=== PATIENT | female | born 1980 | race Caucasian/White ===

== ENCOUNTER 2019-08-27 11:31 | Outpatient (CLI) | payer MEDICAID | END 2019-08-27 23:59 | disposition home or self-care (01) | LOC: RAD 11:31 | DX: R41.3 Other amnesia (principal) | CPT/HCPCS: 95816 ==

== ENCOUNTER 2020-10-08 00:05 | Emergency (ER) | payer MEDICAID, OTHER ==
[~2020-10-08] VITALS: Ht 149.9 cm; Wt 47.2 kg
[2020-10-08 00:06] VITALS: BP 127/77
--- NOTE | 2020-10-08 01:35 | NUR ---
Assesed by MD and dishcarged prior to RN exam. Ambulatory at discharge
--- NOTE | 2020-10-08 01:38 | NUR ---
Patient became aggressive with Dr. Bravo and was escorted by Nurse, tech and security out of the ED.
== END 2020-10-08 01:41 | disposition home or self-care (01) ==
LOC: ER 00:05
DX: M79.631 Pain in right forearm (principal); R10.2 Pelvic and perineal pain; Z98.890 Other specified postprocedural states
CPT/HCPCS: 99281

== ENCOUNTER 2020-11-28 18:39 | Emergency (ER) | payer MEDICAID ==
[~2020-11-28] VITALS: Ht 149.9 cm; Wt 47.7 kg
[2020-11-28 18:42] VITALS: BP 127/82
[2020-11-28] MEDS ORDERED: DOXY100C2 PO (19:03)
== END 2020-11-28 19:08 | disposition home or self-care (01) ==
LOC: ER 18:39
DX: L03.011 Cellulitis of right finger (principal); M79.644 Pain in right finger(s); Z98.890 Other specified postprocedural states; Z79.2 Long term (current) use of antibiotics
CPT/HCPCS: 99283

== ENCOUNTER 2020-11-28 22:17 | Emergency (ER) | payer MEDICAID ==
[~2020-11-28] VITALS: Ht 157.5 cm; Wt 52.3 kg
[~2020-11-28 22:17] MED LIST: DOXY100C2 PO
[2020-11-28 22:33] VITALS: BP 120/80
[2020-11-28] MEDS ORDERED: DOXYCYCLINE 100MG CAPSULE PO STA (22:44)
[2020-11-28] MEDS ORDERED: HYDROcodone/acetaminophen 5mg/325mg tablet PO ONE (22:45)
== END 2020-11-28 23:37 | disposition home or self-care (01) ==
LOC: ER 22:18
DX: L03.011 Cellulitis of right finger (principal); M79.645 Pain in left finger(s); Z98.890 Other specified postprocedural states; Z79.2 Long term (current) use of antibiotics
CPT/HCPCS: 99283

== ENCOUNTER 2021-05-17 14:09 | Emergency (ER) | payer MEDICAID, OTHER ==
[~2021-05-17] VITALS: Ht 162.6 cm; Wt 52.3 kg
[~2021-05-17 14:09] MED LIST changes: -DOXY100C2 PO; +LIDOcaine 1% W/epiNEPHrine 1:100,000 20ml vial ONE
[2021-05-17] MEDS ORDERED: bacitracin 15gm ointment TP ONE (14:50)
[2021-05-17 15:58] VITALS: BP 125/94
== END 2021-05-17 17:00 | disposition home or self-care (01) ==
LOC: ER 14:10
DX: S01.81XA Laceration without foreign body of other part of head, initial encounter (principal); Z98.890 Other specified postprocedural states; X58.XXXA Exposure to other specified factors, initial encounter; Y93.89 Activity, other specified; Y92.89 Other specified places as the place of occurrence of the external cause; Y99.8 Other external cause status
CPT/HCPCS: 12011; 12013; 70450; 70486; 99285

== ENCOUNTER 2021-05-19 22:07 | Emergency (ER) | payer OTHER ==
[~2021-05-19] VITALS: Ht 149.9 cm; Wt 45.5 kg
[2021-05-20 05:37] VITALS: BP 126/84
--- NOTE | 2021-05-20 05:40 | NUR ---
PT TREAT AND D/C BY PROVIDER PRIOR TO RN ASSESSMENTS
== END 2021-05-20 05:40 | disposition home or self-care (01) ==
LOC: ER 22:08
DX: S01.81XD Laceration without foreign body of other part of head, subsequent encounter (principal); Z48.00 Encounter for change or removal of nonsurgical wound dressing; X58.XXXD Exposure to other specified factors, subsequent encounter
CPT/HCPCS: 99281

== ENCOUNTER 2021-05-27 16:46 | Emergency (ER) | payer SELFPAY ==
[~2021-05-27] VITALS: Ht 149.9 cm; Wt 47.7 kg
[2021-05-27 17:02] VITALS: BP 110/68
--- NOTE | 2021-05-27 17:23 | NUR ---
PT WAS SEEN AND TREATED BY DR. ALEXANDER, SUTURES REMOVED.
== END 2021-05-27 17:23 | disposition home or self-care (01) ==
LOC: ER 16:47
DX: S01.81XD Laceration without foreign body of other part of head, subsequent encounter (principal); Z48.00 Encounter for change or removal of nonsurgical wound dressing; X58.XXXD Exposure to other specified factors, subsequent encounter
CPT/HCPCS: 99281